=== PATIENT | female | born 1970 | race Caucasian/White ===

== ENCOUNTER 2016-11-02 02:23 | Emergency (ER) | payer OTHER ==
[~2016-11-02 02:23] MED LIST: INHALER INH; [UNRECOGNIZED DRUG - OTHER] INH
== END 2016-11-02 13:33 | disposition home or self-care (01) ==
LOC: ED 03:16
DX: Z48.01 Encounter for change or removal of surgical wound dressing (principal)
CPT/HCPCS: 99281

== ENCOUNTER 2017-09-07 17:29 | Emergency (ER) | payer OTHER ==
[~2017-09-07] VITALS: Ht 154.9 cm; Wt 126.2 kg
[~2017-09-07 17:29] MED LIST changes: +LISI-167 PO
[2017-09-07 17:33] VITALS: BP 173/105
[2017-09-07] MEDS ORDERED: IBUPROFEN 800 MG TABLET PO ONE (17:49)
[2017-09-07] MEDS ORDERED: IBUPROFEN 200 MG TABLET ONE (17:50)
== END 2017-09-07 18:59 | disposition home or self-care (01) ==
LOC: ED 18:25
DX: L02.211 Cutaneous abscess of abdominal wall (principal); I10 Essential (primary) hypertension; E78.5 Hyperlipidemia, unspecified; J45.909 Unspecified asthma, uncomplicated; E66.01 Morbid (severe) obesity due to excess calories
CPT/HCPCS: 76857; 99284

== ENCOUNTER 2017-11-30 23:23 | Emergency (ER) | payer OTHER ==
[~2017-11-30] VITALS: Ht 154.9 cm; Wt 126.1 kg
[2017-11-30 23:28] VITALS: BP 163/85
[2017-12-01] MEDS ORDERED: DIPH,PERTUSS(ACELL),TET VAC/PF 0.5 ML IM-VACC ONE (00:10)
[2017-12-01] MEDS ORDERED: DIPH,PERTUSS(ACELL),TET VAC/PF NC IM-VACC ONE (00:30)
== END 2017-12-01 00:52 | disposition home or self-care (01) ==
LOC: ED 23:43
DX: S61.214A Laceration without foreign body of right ring finger without damage to nail, initial encounter (principal); E78.5 Hyperlipidemia, unspecified; I10 Essential (primary) hypertension; Z88.0 Allergy status to penicillin; Z88.6 Allergy status to analgesic agent; W45.8XXA Other foreign body or object entering through skin, initial encounter; Y92.69 Other specified industrial and construction area as the place of occurrence of the external cause; Y99.0 Civilian activity done for income or pay; Y93.89 Activity, other specified
CPT/HCPCS: 12001; 90471; 90715; 99283

== ENCOUNTER 2018-04-12 18:35 | Emergency (ER) | payer OTHER ==
[~2018-04-12] VITALS: Ht 152.4 cm; Wt 123.4 kg
--- NOTE | 2018-04-12 19:19 | NUR ---
Urine sample collected and sent to lab.
--- NOTE | 2018-04-12 19:47 | NUR ---
[id number] COUNT INCLUDES THE [facility] CALCULATION REVIEWER.
--- NOTE | 2018-04-12 19:51 | NUR ---
Dr. Donahue at bedside to evaluate pt, using application development director.
[2018-04-12 20:14] LABS: HCG UR SG 1.024 (1.003-1.030); MICROSCOPIC AUTO
[2018-04-12 20:15] LABS: CULTURE INDICATED? YES
--- NOTE | 2018-04-12 21:13 | NUR ---
Dr. Donahue at bedside to discuss ED findings and d/c information.
[2018-04-12 21:14] VITALS: BP 150/75
--- NOTE | 2018-04-12 21:50 | NUR ---
Patient/Caregiver given discharge instructions and they have confirmed that they understand the instructions. Patient ambulatory with steady gait.
== END 2018-04-12 21:52 | disposition home or self-care (01) ==
LOC: ED 21:47
DX: S39.011A Strain of muscle, fascia and tendon of abdomen, initial encounter (principal); N30.00 Acute cystitis without hematuria; I10 Essential (primary) hypertension; Z88.0 Allergy status to penicillin; X58.XXXA Exposure to other specified factors, initial encounter; Y93.89 Activity, other specified; Y92.89 Other specified places as the place of occurrence of the external cause; Y99.8 Other external cause status
CPT/HCPCS: 76705; 81001; 81025; 87086; 99284

== ENCOUNTER 2018-06-30 17:16 | Observation (INO) | payer OTHER ==
[~2018-06-30] VITALS: Ht 154.9 cm; Wt 126.0 kg
--- NOTE | 2018-06-30 17:23 | NUR ---
EKG IN TRIAGE
--- NOTE | 2018-06-30 17:43 | NUR ---
pt to ed with cp starting about 4pm, intermittent, no radiation, hx htn. family at bedside, pt placed on monitor, ekg done in triage. call light within reach
[2018-06-30] MEDS ORDERED: KETOROLAC 30 MG/1 ML ONE (18:10)
[2018-06-30 18:19] LABS: BASOPHILS # (AUTO) 0.05 x10^3/uL (0-0.1); BASOPHILS % (AUTO) 1 % (0-1); EOSINOPHILS # (AUTO) 0.21 x10^3/uL (0-0.4); EOSINOPHILS % (AUTO) 2 % (1-7); LYMPHOCYTES # (AUTO) 2.71 x10^3/uL (1-3.4); LYMPHOCYTES % (AUTO) 27 % (22-44); MD NO; MEAN CORPUSCULAR HEMOGLOBIN 28.4 pg (27.0-34.8); MEAN CORPUSCULAR HGB CONC 33.9 g/dL (32.4-35.8); MEAN CORPUSCULAR VOLUME 83.7 fL (80-100); MEAN PLATELET VOLUME 8.4 fL (7.4-10.4); MONOCYTES # (AUTO) 0.46 x10^3/uL (0.2-0.8); MONOCYTES % (AUTO) 5 % (2-9); NEUTROPHILS # (AUTO) 6.56 x10^3/uL (1.8-6.8); NEUTROPHILS % (AUTO) 66 % (42-75); PLATELET COUNT 287 x10^3/uL (130-400); RED BLOOD COUNT 4.98 x10^6/uL (3.82-5.3); RED CELL DISTRIBUTION WIDTH 14.8 % (9.6-15.2)
[2018-06-30 18:28] LABS: ALANINE AMINOTRANSFERASE 21 U/L (12-78); ALBUMIN 3.3 g/dL (3.4-5.0); ANION GAP 5 mmol/L (5-15); CALCIUM 8.4 mg/dL (8.5-10.1); CHLORIDE 110 mmol/L (98-107); CREATININE 0.82 mg/dL (0.55-1.02)
[2018-06-30] MEDS ORDERED: KETOROLAC 30 MG/1 ML IM ONE (18:30)
[2018-06-30 18:33] LABS: ALKALINE PHOSPHATASE 106 U/L (45-117); BILIRUBIN,TOTAL 0.2 mg/dL (0.2-1.0); TOTAL PROTEIN 7.5 g/dL (6.4-8.2); TROPONIN I < 0.015 ng/mL (0.000-0.045)
--- NOTE | 2018-06-30 18:34 | NUR ---
PT RESTING IN GURNEY WATCHING TV, AWAITING LAB RESULTS. FAMILY AT BEDSIDE. CALL LIGHT WITHIN REACH. PT STATES TORADOL HELPED WITH PAIN RELIEF
--- NOTE | 2018-06-30 19:05 | NUR ---
REPORT RECEIVED FROM OLI LO. ASSUMED CARE OF PT. PT SITTING ON GURNEY IN NAD. DR. JULIO AT BEDSIDE UPDATING PT ON POC
[2018-06-30] MEDS ORDERED: NITROGLYCERIN OINT 2%, 1GM TP ONE ×2 (19:30→19:59)
[2018-06-30] MEDS ORDERED: ONDANSETRON ODT 4 MG PO PRN (19:30)
[2018-06-30] MEDS ORDERED: hydrALAzine 20 MG/ML, 1ML IVPush PRN (19:30)
[2018-06-30] MEDS ORDERED: morphine SULFATE 10 MG/ML, 1ML IVPush PRN (19:30)
[2018-06-30] MEDS ORDERED: CLOPIDOGREL 300 MG TABLET PO ONE (20:00)
--- NOTE | 2018-06-30 20:26 | NUR ---
IV ESTABLISHED. PT MEDICATED PER EMAR. 5 RIGHTS ADDRESSED. HOSPITAL BED REQUESTED DUE TO PT BEING A TELE HOLD
[2018-06-30] MEDS: INSULIN LISPRO 100 UNITS/ML, PEN SQ-INSULIN SCH (21:00)
[2018-06-30] MEDS ORDERED: MORPHINE SULFATE 4 MG/ML, 1ML ONE (21:12)
--- NOTE | 2018-06-30 21:30 | NUR ---
PT C/O CP, SUBSTERNAL NONRADIATING, DENIES ANY SOB OR N/V. REPEAT EKG COMPLETE. PT MEDICATED PER EMAR WITH MORPHINE. FSBS COMPLETE 188
--- NOTE | 2018-06-30 21:43 | NUR ---
INSULIN HELD DUE TO PT BEING NPO. SHE REPORTS A RELIEF IN PAIN AT THIS TIME.
--- NOTE | 2018-06-30 22:01 | NUR ---
PT MOVED TO HOSPITAL BED. REPORTS PAIN HAS SUBSIDED AFTER MORPHINE ADMINISTRATION. DENIES ANY NEEDS AT THIS TIME. WILL CONTINUE TO MONITOR.
--- NOTE | 2018-06-30 22:51 | NUR ---
PT RESTING ON HOSPITAL BED. FAMILY AT BEDSIDE. DENIES ANY COMPLAINTS
--- NOTE | 2018-06-30 23:55 | NUR ---
PT RESTING ON HOSPITAL BED. DENIES ANY NEEDS AT THIS TIME
--- NOTE | 2018-07-01 01:02 | NUR ---
PT AMBULATORY TO RESTROOM, STEADY GAIT NOTED. BACK TO BED WITHOUT DIFFICULTY. DENIES ANY COMPLAINTS
--- NOTE | 2018-07-01 02:20 | NUR ---
PT O2 SATS DECREASED TO 88% WHILE SLEEPING. PT PLACED ON O2 VIA NC @ 2LPM. PT CONTINUES TO DENY ANY COMPLAINTS AT THIS TIME. VITALS STABLE. LIGHTS TURNED OFF FOR COMFORT.
--- NOTE | 2018-07-01 03:49 | NUR ---
PT SLEEPING. VITALS STABLE. CALL LIGHT WITHIN REACH. WILL CONTINUE TO MONITOR.
[2018-07-01 05:17] LABS: BASOPHILS # (AUTO) 0.01 x10^3/uL (0-0.1); BASOPHILS % (AUTO) 0 % (0-1); EOSINOPHILS # (AUTO) 0.17 x10^3/uL (0-0.4); EOSINOPHILS % (AUTO) 2 % (1-7); LYMPHOCYTES # (AUTO) 2.97 x10^3/uL (1-3.4); LYMPHOCYTES % (AUTO) 30 % (22-44); MD NO; MEAN CORPUSCULAR HEMOGLOBIN 27.9 pg (27.0-34.8); MEAN CORPUSCULAR VOLUME 84.6 fL (80-100); MONOCYTES # (AUTO) 0.48 x10^3/uL (0.2-0.8); MONOCYTES % (AUTO) 5 % (2-9); NEUTROPHILS % (AUTO) 63 % (42-75); PLATELET COUNT 280 x10^3/uL (130-400); RED BLOOD COUNT 4.83 x10^6/uL (3.82-5.3); RED CELL DISTRIBUTION WIDTH 15.4 % (9.6-15.2)
--- NOTE | 2018-07-01 05:21 | NUR ---
PT SLEEPING. ALL VITALS STABLE. NSR ON THE MONITOR WITH NO ECTOPY NOTED. WILL CONTINUE TO MONITOR.
[2018-07-01 05:31] LABS: ANION GAP 8 mmol/L (5-15); CALCIUM 7.9 mg/dL (8.5-10.1); CHLORIDE 104 mmol/L (98-107)
[2018-07-01 05:36] LABS: CREATININE 0.64 mg/dL (0.55-1.02); TROPONIN I < 0.015 ng/mL (0.000-0.045)
--- NOTE | 2018-07-01 06:22 | NUR ---
PT SLEEPING. VITALS STABLE. CALL LIGHT WITHIN REACH. MEAL TRAY NOT ORDERED DUE TO PT BEING NPO.
--- NOTE | 2018-07-01 06:57 | NUR ---
RECEIVED REPORT FROM SAMSON BAIRD, PLAN OF CARE DISCUSSED. PT SLEEPING, SWEET PICKLE MAKER ON, SINUS. RESP EVEN AND UNLABORED
[2018-07-01] MEDS: INSULIN LISPRO 100 UNITS/ML, PEN SQ-INSULIN SCH ×2 (07:00→15:03)
[2018-07-01] MEDS ORDERED: HEPARIN 5,000 UNITS/ML, 1ML SQ SCH (07:00)
[2018-07-01] MEDS ORDERED: MAALOX/HYOSCYAMINE/LIDOCAINE 45 ML BTL PO ONE (07:00)
--- NOTE | 2018-07-01 07:01 | NUR ---
REPORT TO YOUSUF BAIRD, PLAN OF CARE DISCUSSED
[2018-07-01 07:23] LABS: CHOL/HDL RATIO 3.9; LDL/HDL RATIO 2.5 (0.5-3.0)
[2018-07-01 08:00] VITALS: BP 128/76
[2018-07-01] MEDS ORDERED: REGADENOSON 0.4 MG/5 ML SYRINGE ONE (08:14)
[2018-07-01] MEDS ORDERED: ALBU90AE INH (10:49)
[2018-07-01] MEDS ORDERED: METF850T PO (13:02)
[2018-07-01 14:00] VITALS: BP 144/88
[2018-07-01] MEDS ORDERED: metFORMIN 850 MG TABLET PO SCH (17:00)
== END 2018-07-01 16:28 | disposition home or self-care (01) ==
LOC: ED 17:48 → EDIP 19:29 → 5SO 07-01 07:20
PROVIDERS: ADMIT Internal Medicine; ATTEND Internal Medicine
DX: R07.89 Other chest pain (principal); I10 Essential (primary) hypertension; E11.65 Type 2 diabetes mellitus with hyperglycemia; E66.01 Morbid (severe) obesity due to excess calories; E78.5 Hyperlipidemia, unspecified; F41.1 Generalized anxiety disorder; I11.0 Hypertensive heart disease with heart failure; I50.9 Heart failure, unspecified; J45.909 Unspecified asthma, uncomplicated; K29.70 Gastritis, unspecified, without bleeding; Z82.49 Family history of ischemic heart disease and other diseases of the circulatory system; Z88.6 Allergy status to analgesic agent
CPT/HCPCS: 36415; 71045; 78452; 80048; 80053; 80061; 82962; 83036; 83690; 83880; 84443; 84484; 85025; 85379; 93005; 93017; 96372; 96374; 99284; A9502; C9898; G0378; J1644; J1885; J2270; J2785

== ENCOUNTER 2018-12-29 00:15 | Emergency (ER) | payer OTHER ==
[~2018-12-29] VITALS: Ht 154.9 cm; Wt 122.3 kg
[~2018-12-29 00:15] MED LIST changes: +ALBU90AE INH; +METF850T PO
[2018-12-29 00:17] VITALS: BP 170/77
[2018-12-29] MEDS ORDERED: ACETAMINOPHEN 500 MG TABLET ONE (00:41)
[2018-12-29] MEDS ORDERED: IBUPROFEN 600 MG TABLET ONE (00:41)
--- NOTE | 2018-12-29 00:46 | NUR ---
report from janet montelongo
[2018-12-29] MEDS ORDERED: ACETAMINOPHEN 500 MG TABLET PO ONE (01:00)
[2018-12-29] MEDS ORDERED: IBUPROFEN 200 MG TABLET PO ONE (01:00)
== END 2018-12-29 01:58 | disposition home or self-care (01) ==
LOC: ED 00:57
DX: G89.11 Acute pain due to trauma (principal); M25.512 Pain in left shoulder; E11.9 Type 2 diabetes mellitus without complications; I10 Essential (primary) hypertension; E78.5 Hyperlipidemia, unspecified; J45.909 Unspecified asthma, uncomplicated; E66.01 Morbid (severe) obesity due to excess calories; X08.8XXA Exposure to other specified smoke, fire and flames, initial encounter; Y93.89 Activity, other specified; Y92.89 Other specified places as the place of occurrence of the external cause; Y99.8 Other external cause status
CPT/HCPCS: 99283

== ENCOUNTER 2019-01-17 21:01 | Emergency (ER) | payer OTHER ==
[~2019-01-17] VITALS: Ht 157.5 cm; Wt 122.0 kg
[2019-01-17] MEDS ORDERED: NEOSPORIN OINT. PKT 1 PACKET ONE (23:14)
--- NOTE | 2019-01-17 23:20 | NUR ---
R EYEBROW LAC CLEANED WITH NS. BACITRACIN APPLIED, DRESSED WITH BAND-AID. PT TOLERATED WELL.
[2019-01-17] MEDS ORDERED: DIPH,PERTUSS(ACELL),TET VAC/PF 0.5 ML IM-VACC ONE ×2 (23:30→23:42)
--- NOTE | 2019-01-17 23:30 | NUR ---
ERP IN TO SEE PT WITH ENVIRONMENTAL STUDIES DEPARTMENT CHAIR.
[2019-01-17 23:51] VITALS: BP 171/88
== END 2019-01-17 23:59 | disposition home or self-care (01) ==
LOC: ED 23:38
DX: S00.81XA Abrasion of other part of head, initial encounter (principal); E11.9 Type 2 diabetes mellitus without complications; E78.5 Hyperlipidemia, unspecified; I10 Essential (primary) hypertension; J45.909 Unspecified asthma, uncomplicated; E66.01 Morbid (severe) obesity due to excess calories; Z68.42 Body mass index [BMI] 45.0-49.9, adult; X58.XXXA Exposure to other specified factors, initial encounter; Y93.89 Activity, other specified; Y92.69 Other specified industrial and construction area as the place of occurrence of the external cause; Y99.8 Other external cause status
CPT/HCPCS: 90471; 90715

== ENCOUNTER 2019-01-20 02:32 | Emergency (ER) | payer OTHER ==
[~2019-01-20] VITALS: Ht 154.9 cm; Wt 100.0 kg
[2019-01-20] MEDS ORDERED: methylPREDNISolone SOD SUCC 125 MG/2 ML IVPush STA (02:40)
[2019-01-20] MEDS ORDERED: ALBUTEROL/IPRATROPIUM 2.5MG/0.5MG, 3 ML NPPB SCH (03:00)
[2019-01-20] MEDS ORDERED: SODIUM CHLORIDE FLUSH 10ML SYR IVF ONE (03:00)
[2019-01-20 03:16] LABS: BASOPHILS # (AUTO) 0.04 x10^3/uL (0-0.1); BASOPHILS % (AUTO) 1 % (0-1); EOSINOPHILS # (AUTO) 0.46 x10^3/uL (0-0.4); EOSINOPHILS % (AUTO) 5 % (1-7); LYMPHOCYTES # (AUTO) 3.15 x10^3/uL (1-3.4); LYMPHOCYTES % (AUTO) 32 % (22-44); MD NO; MEAN CORPUSCULAR HEMOGLOBIN 28.3 pg (27.0-34.8); MEAN CORPUSCULAR HGB CONC 32.5 g/dL (32.4-35.8); MEAN CORPUSCULAR VOLUME 87.2 fL (80-100); MEAN PLATELET VOLUME 8.5 fL (7.4-10.4); MONOCYTES # (AUTO) 0.52 x10^3/uL (0.2-0.8); MONOCYTES % (AUTO) 5 % (2-9); NEUTROPHILS # (AUTO) 5.73 x10^3/uL (1.8-6.8); NEUTROPHILS % (AUTO) 58 % (42-75); PLATELET COUNT 289 x10^3/uL (130-400); RED BLOOD COUNT 5.14 x10^6/uL (3.82-5.3)
[2019-01-20] MEDS ORDERED: methylPREDNISolone SOD SUCC 125 MG/2 ML ONE (03:26)
[2019-01-20 03:27] LABS: ALANINE AMINOTRANSFERASE 30 U/L (12-78); ALBUMIN 3.3 g/dL (3.4-5.0); ANION GAP 5 mmol/L (5-15); CALCIUM 8.2 mg/dL (8.5-10.1); CHLORIDE 105 mmol/L (98-107); CREATININE 0.54 mg/dL (0.55-1.02)
[2019-01-20 03:32] LABS: ALKALINE PHOSPHATASE 104 U/L (45-117); BILIRUBIN,TOTAL 0.3 mg/dL (0.2-1.0); TOTAL PROTEIN 7.8 g/dL (6.4-8.2); TROPONIN I < 0.015 ng/mL (0.000-0.045)
[2019-01-20] MEDS ORDERED: OMNIPAQUE 350 MG/ML, 100ML BOTTLE ONE (05:31)
[2019-01-20 05:55] VITALS: BP 137/78
== END 2019-01-20 06:12 | disposition home or self-care (01) ==
LOC: ED 04:54
DX: J45.901 Unspecified asthma with (acute) exacerbation (principal); I10 Essential (primary) hypertension; E78.5 Hyperlipidemia, unspecified; E11.9 Type 2 diabetes mellitus without complications; E66.01 Morbid (severe) obesity due to excess calories; Z68.41 Body mass index [BMI] 40.0-44.9, adult
CPT/HCPCS: 36415; 71045; 71275; 80053; 83880; 84484; 84703; 85025; 93005; 94640; 96374; 99284; J2930; J7620; Q9967

== ENCOUNTER 2019-02-14 00:39 | Emergency (ER) | payer OTHER ==
[2019-02-14 00:41] VITALS: BP 180/90
[2019-02-14] MEDS ORDERED: BACITRACIN OINT 500U/GM, 15 GM TP ONE (01:09)
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
--- NOTE | 2019-02-14 01:34 | NUR ---
[facility] AT BEDSIDE WITH PT TO TAKE REPORT.
== END 2019-02-14 02:47 | disposition home or self-care (01) ==
LOC: ED 02:15
DX: S61.412A Laceration without foreign body of left hand, initial encounter (principal); M54.2 Cervicalgia; I10 Essential (primary) hypertension; E78.5 Hyperlipidemia, unspecified; E11.9 Type 2 diabetes mellitus without complications; E66.01 Morbid (severe) obesity due to excess calories; J45.909 Unspecified asthma, uncomplicated; Z68.41 Body mass index [BMI] 40.0-44.9, adult; Y04.0XXA Assault by unarmed brawl or fight, initial encounter; Y93.01 Activity, walking, marching and hiking; Y92.410 Unspecified street and highway as the place of occurrence of the external cause; Y99.8 Other external cause status
CPT/HCPCS: 99283

== ENCOUNTER 2019-03-04 13:47 | Emergency (ER) | payer OTHER ==
[~2019-03-04] VITALS: Ht 154.9 cm; Wt 123.2 kg
[2019-03-04 14:36] LABS: BASOPHILS # (AUTO) 0.02 x10^3/uL (0-0.1); BASOPHILS % (AUTO) 0 % (0-1); EOSINOPHILS # (AUTO) 0.17 x10^3/uL (0-0.4); EOSINOPHILS % (AUTO) 2 % (1-7); LYMPHOCYTES # (AUTO) 1.69 x10^3/uL (1-3.4); LYMPHOCYTES % (AUTO) 18 % (22-44); MD NO; MEAN CORPUSCULAR HGB CONC 32.5 g/dL (32.4-35.8); MEAN CORPUSCULAR VOLUME 86.1 fL (80-100); MEAN PLATELET VOLUME 8.1 fL (7.4-10.4); MONOCYTES # (AUTO) 0.36 x10^3/uL (0.2-0.8); MONOCYTES % (AUTO) 4 % (2-9); NEUTROPHILS # (AUTO) 7.06 x10^3/uL (1.8-6.8); NEUTROPHILS % (AUTO) 76 % (42-75); PLATELET COUNT 286 x10^3/uL (130-400); RED BLOOD COUNT 5.39 x10^6/uL (3.82-5.3); RED CELL DISTRIBUTION WIDTH 14.5 % (9.6-15.2)
[2019-03-04 14:44] LABS: ALANINE AMINOTRANSFERASE 29 U/L (12-78); ALBUMIN 3.5 g/dL (3.4-5.0); ANION GAP 4 mmol/L (5-15); CALCIUM 8.5 mg/dL (8.5-10.1); CHLORIDE 103 mmol/L (98-107); CREATININE 0.71 mg/dL (0.55-1.02)
[2019-03-04 14:46] LABS: ALKALINE PHOSPHATASE 115 U/L (45-117); BILIRUBIN,TOTAL 0.6 mg/dL (0.2-1.0); TOTAL PROTEIN 8.1 g/dL (6.4-8.2)
[2019-03-04 19:35] LABS: TROPONIN I < 0.015 ng/mL (0.000-0.045)
[2019-03-04 20:12] VITALS: BP 167/84
--- NOTE | 2019-03-04 20:14 | NUR ---
RN to bedside, patient pashto speaking only. Patient reports substernal and head pain. Patient has a history of CVA, no appreciable deficits. Patient attached to blood pressure cuff and pulsatile oxygen sensor. Vital signs within normal limits. Orders placed for blood work. Awaiting results.
[2019-03-04] MEDS ORDERED: ACETAMINOPHEN 500 MG TABLET PO ONE (20:30)
[2019-03-04] MEDS ORDERED: ACETAMINOPHEN 500 MG TABLET ONE (20:41)
== END 2019-03-04 20:48 | disposition home or self-care (01) ==
LOC: ED 20:40
DX: R51 Headache (principal); R07.89 Other chest pain; I10 Essential (primary) hypertension; E11.9 Type 2 diabetes mellitus without complications; J45.909 Unspecified asthma, uncomplicated; E78.5 Hyperlipidemia, unspecified
CPT/HCPCS: 36415; 71046; 80053; 84484; 85025; 93005; 99284

== ENCOUNTER 2019-12-27 18:50 | Emergency (ER) | payer SELFPAY ==
[~2019-12-27] VITALS: Ht 154.9 cm; Wt 121.7 kg
[2019-12-27] MEDS ORDERED: SODIUM CHLORIDE FLUSH 10ML SYR IVF ONE (19:00)
[2019-12-27 19:31] LABS: BASOPHILS % (AUTO) 0 % (0-1); EOSINOPHILS % (AUTO) 2 % (1-7); LYMPHOCYTES % (AUTO) 22 % (22-44); MEAN CORPUSCULAR HEMOGLOBIN 28.2 pg (27.0-34.8); MEAN CORPUSCULAR HGB CONC 32.9 g/dL (32.4-35.8); MEAN PLATELET VOLUME 7.9 fL (7.4-10.4); MONOCYTES % (AUTO) 5 % (2-9); NEUTROPHILS % (AUTO) 71 % (42-75); PLATELET COUNT 273 x10^3/uL (130-400); RED BLOOD COUNT 5.23 x10^6/uL (3.82-5.3); RED CELL DISTRIBUTION WIDTH 14.5 % (9.6-15.2)
[2019-12-27 19:33] LABS: MD NO
[2019-12-27 19:38] LABS: ALBUMIN 3.4 g/dL (3.4-5.0); ANION GAP 2 mmol/L (5-15); CALCIUM 8.6 mg/dL (8.5-10.1); CHLORIDE 103 mmol/L (98-107)
[2019-12-27 19:45] LABS: ALANINE AMINOTRANSFERASE 21 U/L (12-78); ALKALINE PHOSPHATASE 102 U/L (45-117); BILIRUBIN,TOTAL 0.3 mg/dL (0.2-1.0); TOTAL PROTEIN 8.1 g/dL (6.4-8.2)
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
[2019-12-27 21:45] VITALS: BP 131/64
--- NOTE | 2019-12-27 21:56 | NUR ---
Patient given discharge instructions and they have confirmed that they understand the instructions. Patient ambulatory with steady gait.
== END 2019-12-27 22:09 | disposition home or self-care (01) ==
LOC: ED 21:06
DX: S30.1XXA Contusion of abdominal wall, initial encounter (principal); I10 Essential (primary) hypertension; W01.0XXA Fall on same level from slipping, tripping and stumbling without subsequent striking against object, initial encounter; Y93.89 Activity, other specified; Y92.009 Unspecified place in unspecified non-institutional (private) residence as the place of occurrence of the external cause; Y99.8 Other external cause status
CPT/HCPCS: 36415; 80053; 84703; 85025; 99283

== ENCOUNTER 2020-01-25 05:06 | Emergency (ER) | payer SELFPAY ==
[~2020-01-25] VITALS: Ht 154.9 cm; Wt 120.0 kg
[2020-01-25] MEDS ORDERED: SODIUM CHLORIDE FLUSH 10ML SYR IVF ONE (06:00)
[2020-01-25 06:21] LABS: BASOPHILS % (AUTO) 1 % (0-1); EOSINOPHILS % (AUTO) 1 % (1-7); LYMPHOCYTES % (AUTO) 31 % (22-44); MEAN CORPUSCULAR HEMOGLOBIN 27.9 pg (27.0-34.8); MEAN CORPUSCULAR HGB CONC 33.3 g/dL (32.4-35.8); MEAN PLATELET VOLUME 8.4 fL (7.4-10.4); MONOCYTES % (AUTO) 6 % (2-9); NEUTROPHILS % (AUTO) 62 % (42-75); PLATELET COUNT 165 x10^3/uL (130-400); RED BLOOD COUNT 5.01 x10^6/uL (3.82-5.3); RED CELL DISTRIBUTION WIDTH 14.4 % (9.6-15.2)
--- NOTE | 2020-01-25 06:22 | NUR ---
pt reports that starting last night, she started having trouble breathing. she denies chest pain and denies sick contacts. pt coughing frequently and also has reports of hot/cold chills.
[2020-01-25 06:25] LABS: MD NO
[2020-01-25 06:29] LABS: ALANINE AMINOTRANSFERASE 26 U/L (12-78); ALBUMIN 3.1 g/dL (3.4-5.0); ANION GAP 4 mmol/L (5-15); CALCIUM 8.1 mg/dL (8.5-10.1); CHLORIDE 101 mmol/L (98-107); CREATININE 0.66 mg/dL (0.55-1.02)
[2020-01-25 06:33] LABS: ALKALINE PHOSPHATASE 90 U/L (45-117); BILIRUBIN,TOTAL 0.4 mg/dL (0.2-1.0); TOTAL PROTEIN 7.5 g/dL (6.4-8.2)
[2020-01-25] MEDS ORDERED: SODIUM CHLORIDE 0.9% 1,000ML IVBOLUS ONE (07:00)
--- NOTE | 2020-01-25 07:18 | NUR ---
DR PHILLIPS BEDSIDE TO SWAB PT
[2020-01-25 08:08] VITALS: BP 138/75
== END 2020-01-25 08:42 ==
LOC: ED 08:36
DX: U07.1 COVID-19 (principal); J45.21 Mild intermittent asthma with (acute) exacerbation; J18.0 Bronchopneumonia, unspecified organism; Z72.9 Problem related to lifestyle, unspecified; I10 Essential (primary) hypertension
CPT/HCPCS: 36415; 71045; 80053; 83605; 84145; 84703; 85025; 87040; 87635; 93005; 96360; 99285; J7030

== ENCOUNTER 2020-05-25 17:22 | Emergency (ER) | payer SELFPAY ==
[~2020-05-25] VITALS: Ht 154.9 cm; Wt 124.0 kg
--- NOTE | 2020-05-25 17:57 | NUR ---
PT CAME IN CO CHEST PAIN THAT STARTED AROUND 1620 TODAY. DESCRIBES HEAVY AND SHARP. EKG COMPLETE. PT CONNECTED TO ALL MONITORING EQUIPMENT. WARM BLANKET PROVIDED
[2020-05-25] MEDS ORDERED: NITROGLYCERIN SINGLE TAB 0.4 MG SL ONE (18:23)
--- NOTE | 2020-05-25 18:29 | NUR ---
PT MEDICATED PER MAR
[2020-05-25] MEDS ORDERED: SODIUM CHLORIDE FLUSH 10ML SYR IVF ONE (18:30)
[2020-05-25] MEDS ORDERED: NITROGLYCERIN SINGLE TAB 0.4 MG SL PRN (18:30)
[2020-05-25 18:31] LABS: BASOPHILS % (AUTO) 1 % (0-1); EOSINOPHILS % (AUTO) 1 % (1-7); LYMPHOCYTES % (AUTO) 27 % (22-44); MEAN CORPUSCULAR HEMOGLOBIN 28.5 pg (27.0-34.8); MEAN CORPUSCULAR HGB CONC 33.7 g/dL (32.4-35.8); MEAN PLATELET VOLUME 7.9 fL (7.4-10.4); MONOCYTES % (AUTO) 5 % (2-9); NEUTROPHILS % (AUTO) 68 % (42-75); PLATELET COUNT 263 x10^3/uL (130-400); RED BLOOD COUNT 5.26 x10^6/uL (3.82-5.3); RED CELL DISTRIBUTION WIDTH 14.7 % (9.6-15.2)
[2020-05-25 18:35] LABS: MD NO
[2020-05-25 18:42] LABS: ALANINE AMINOTRANSFERASE 36 U/L (12-78); ALBUMIN 3.3 g/dL (3.4-5.0); ANION GAP 5 mmol/L (5-15); CALCIUM 8.4 mg/dL (8.5-10.1); CHLORIDE 102 mmol/L (98-107); CREATININE 0.74 mg/dL (0.55-1.02)
[2020-05-25 18:46] LABS: ALKALINE PHOSPHATASE 111 U/L (45-117); BILIRUBIN,TOTAL 0.1 mg/dL (0.2-1.0); TOTAL PROTEIN 7.9 g/dL (6.4-8.2); TROPONIN I < 0.015 ng/mL (0.000-0.045)
--- NOTE | 2020-05-25 18:55 | NUR ---
PT REPORTS CP PAIN IMPROVEMENT
--- NOTE | 2020-05-25 19:29 | NUR ---
ASSUMED CARE OF PT FROM [facility] PEREZ. PT RESTING IN [facility], MONITORING IN PLACE, [place] AT THIS TIME, PT STATES NO NEEDS AT THIS TIME, WCTM.
[2020-05-25] MEDS ORDERED: OMNIPAQUE 350 MG/ML, 75ML BOTTLE ONE (20:51)
--- NOTE | 2020-05-25 20:55 | NUR ---
PT RESTING IN [facility] AT THIS TIME, MONTIORING IN PLACE, PER PT NO NEEDS AT THIS TIME, WCTM.
[2020-05-25 21:58] LABS: TROPONIN I < 0.015 ng/mL (0.000-0.045)
[2020-05-25 22:23] VITALS: BP 134/89
== END 2020-05-25 22:25 | disposition home or self-care (01) ==
LOC: ED 21:48
DX: R07.89 Other chest pain (principal); R94.31 Abnormal electrocardiogram [ECG] [EKG]; R11.0 Nausea; E78.5 Hyperlipidemia, unspecified; E11.9 Type 2 diabetes mellitus without complications; I10 Essential (primary) hypertension; J45.909 Unspecified asthma, uncomplicated; E66.01 Morbid (severe) obesity due to excess calories; Z68.43 Body mass index [BMI] 50.0-59.9, adult
CPT/HCPCS: 36415; 71045; 71275; 80053; 83690; 84484; 85025; 85379; 93005; 99285; Q9967

== ENCOUNTER 2020-09-18 16:41 | Emergency (ER) | payer OTHER ==
[~2020-09-18] VITALS: Ht 154.9 cm; Wt 123.5 kg
[2020-09-18 16:46] VITALS: BP 148/90
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
[2020-09-18] MEDS ORDERED: FLUORESCEIN OPHTHALMIC 1 MG STRIP ONE (17:10)
[2020-09-18] MEDS ORDERED: PROPARACAINE OPHTH 0.5%, 15ML ONE (17:10)
[2020-09-18] MEDS ORDERED: FLUORESCEIN OPHTHALMIC 1 MG STRIP EACHEYE ONE (17:30)
[2020-09-18] MEDS ORDERED: PROPARACAINE OPHTH 0.5%, 15ML EACHEYE ONE (17:30)
--- NOTE | 2020-09-18 17:39 | NUR ---
PATIENT SITTING IN EYE CHAIR, NADN, VSS, CALL LIGHT WITHIN REACH.
--- NOTE | 2020-09-18 17:44 | NUR ---
ERMD AT BEDSIDE FOR EVALUATION.
--- NOTE | 2020-09-18 18:27 | NUR ---
Patient given discharge instructions and they have confirmed that they understand the instructions. Patient ambulatory with steady gait. NAD, all questions answered appropriately, denies additional needs at this time. No personal belongings left in room after discharge.
== END 2020-09-18 18:28 | disposition home or self-care (01) ==
LOC: ED 18:22
DX: H57.11 Ocular pain, right eye (principal); J45.909 Unspecified asthma, uncomplicated; E11.9 Type 2 diabetes mellitus without complications; E66.01 Morbid (severe) obesity due to excess calories; Z68.43 Body mass index [BMI] 50.0-59.9, adult
CPT/HCPCS: 99283